=== PATIENT | female | born 1960 | race Caucasian/White ===

== ENCOUNTER 2016-05-09 14:18 | Emergency (ER) | payer MEDICARE ==
[~2016-05-09 14:18] MED LIST: CELEBREX 200MG200 MG PO; COREG 3.125M3.125 MG PO; CYMBALTA60 MG PO; DEXALANT PO; FENOFIBRATE200 MG PO; LYRICA150 MG PO; NORCO 7.5-3251 EACH PO; PRAVACHOL80 MG PO; REXULTI PO; TRAZODONE HCL150 MG PO; WELLBUTRIN SR150 MG PO
[2016-05-09 17:50] LABS: RED BLOOD COUNT 5.09 M/UL (4.00-5.10); WHITE BLOOD COUNT 3.9 K/UL (4.5-11.0)
[2016-05-09 18:09] LABS: BUN/CREATININE RATIO 10 (0-10)
== END 2016-05-09 20:30 | disposition short-term general hospital (02) ==
LOC: ER1 14:18
PROVIDERS: Emergency Medicine
DX: R51 Headache (principal); M54.5 Low back pain; R50.9 Fever, unspecified; R07.9 Chest pain, unspecified; I10 Essential (primary) hypertension; F17.200 Nicotine dependence, unspecified, uncomplicated; Z90.49 Acquired absence of other specified parts of digestive tract
CPT/HCPCS: 36415; 71010; 80053; 81001; 82550; 82553; 83605; 83874; 84484; 85025; 87040; 93005; 96361; 96365; 96375; 99285; J0696; J2270; J2405; J7050

== ENCOUNTER 2020-02-29 09:38 | Observation (INO) | payer OTHER ==
[~2020-02-29] VITALS: Ht 170.2 cm; Wt 93.0 kg
[~2020-02-29 09:38] MED LIST changes: +ANORO ELLIPTA1 EACH INH; +ASPIRIN 325MG325 MG NG; +DEXILANT60 MG PO; +GLUCOPHAGE 500500 MG PO; +GLUCOPHAGE XR500 MG PO; +LIPITOR TAB 2020 MG PO; +PROAIR HFA8.5 GM INH; +SERTRALINE HCL50 MG PO; +TOPAMAX50 MG PO
[2020-02-29 10:23] LABS: HEMOGLOBIN 15.5 gm/dl (12.3-15.3); RED BLOOD COUNT 4.88 M/UL (4.00-5.10); WHITE BLOOD COUNT 8.4 K/UL (4.5-11.0)
[2020-02-29 11:12] LABS: BUN/CREATININE RATIO 16 (0-10)
[2020-02-29] MEDS ORDERED: LIORESAL TAB 1010 MG PO (11:56)
[2020-02-29] MEDS ORDERED: HYDROCODON-ACE1 EAC4 PO (11:57)
[2020-02-29] MEDS ORDERED: MELOXICAM7.5 MG PO (11:58)
[2020-02-29] MEDS ORDERED: WELLBUTRIN SR150 M1 PO (11:59)
[2020-02-29] MEDS ORDERED: REPATHA INJ (11:59)
[2020-02-29] MEDS ORDERED: COREG6.25 MG PO (12:00)
[2020-02-29] MEDS ORDERED: ANORO ELLIPTA1 EACH INH (12:00)
[2020-02-29] MEDS ORDERED: COZAAR 25MG TAB25 MG PO (12:00)
[2020-02-29] MEDS ORDERED: METHOCARBAMOL500 MG PO (12:01)
[2020-02-29] MEDS ORDERED: NITROGLYCERIN0.4 MG SL (12:01)
[2020-02-29] MEDS ORDERED: OMEGA 3 1,0001 EACH PO (12:02)
[2020-02-29] MEDS ORDERED: ASPIRIN EC81 MG PO (12:02)
[2020-02-29] MEDS ORDERED: VITAMIN B-121000 MC3 PO (12:03)
[2020-02-29] MEDS ORDERED: VITAMIN D325 MC6 PO (12:03)
[2020-03-01 07:05] LABS: HEMOGLOBIN 14.3 gm/dl (12.3-15.3); RED BLOOD COUNT 4.63 M/UL (4.00-5.10); WHITE BLOOD COUNT 7.2 K/UL (4.5-11.0)
[2020-03-01 07:19] LABS: BUN/CREATININE RATIO 16 (0-10)
[2020-03-01] MEDS ORDERED: IMDUR ER TAB 3030 MG PO (14:17)
== END 2020-03-01 16:22 | disposition home or self-care (01) ==
LOC: ER1 09:38 → CDU 11:30 → M/S 13:58
PROVIDERS: Emergency Medicine; Physician Assistant; ADMIT Internal Medicine
DX: I25.119 Atherosclerotic heart disease of native coronary artery with unspecified angina pectoris (principal); I10 Essential (primary) hypertension; J43.9 Emphysema, unspecified; E78.5 Hyperlipidemia, unspecified; K21.9 Gastro-esophageal reflux disease without esophagitis; R73.03 Prediabetes; D75.1 Secondary polycythemia; R91.8 Other nonspecific abnormal finding of lung field; K22.70 Barrett's esophagus without dysplasia; Z20.822 Contact with and (suspected) exposure to COVID-19; Z80.9 Family history of malignant neoplasm, unspecified; Z82.49 Family history of ischemic heart disease and other diseases of the circulatory system; Z83.6 Family history of other diseases of the respiratory system; Z83.3 Family history of diabetes mellitus; Z98.890 Other specified postprocedural states; Z90.49 Acquired absence of other specified parts of digestive tract; Z90.710 Acquired absence of both cervix and uterus; Z79.82 Long term (current) use of aspirin; Z79.899 Other long term (current) drug therapy; Z98.51 Tubal ligation status; F17.210 Nicotine dependence, cigarettes, uncomplicated
CPT/HCPCS: 36415; 71045; 80048; 80053; 82550; 82553; 83036; 83874; 84484; 85025; 93005; 94640; 94664; 94760; 99152; 99153; 99285; C1760; C1769; G0378; J1644; J2250; J3010; Q9967; U0002

== ENCOUNTER 2021-01-14 13:38 | Emergency (ER) | payer OTHER ==
[~2021-01-14 13:38] MED LIST changes: +ASPIRIN EC81 MG PO; +COREG6.25 MG PO; +COZAAR 25MG TAB25 MG PO; +HYDROCODON-ACE1 EAC4 PO; +IMDUR ER TAB 3030 MG PO; +LIORESAL TAB 1010 MG PO; +MELOXICAM7.5 MG PO; +METHOCARBAMOL500 MG PO; +NITROGLYCERIN0.4 MG SL; +OMEGA 3 1,0001 EACH PO; +REPATHA INJ; +VITAMIN B-121000 MC3 PO; +VITAMIN D325 MC6 PO; +WELLBUTRIN SR150 M1 PO
[2021-01-14 14:51] LABS: HEMOGLOBIN 16.8 gm/dl (12.3-15.3); RED BLOOD COUNT 5.17 M/UL (4.00-5.10); WHITE BLOOD COUNT 12.1 K/UL (4.5-11.0)
[2021-01-14 15:20] LABS: BUN/CREATININE RATIO 19 (0-10)
[2021-01-14] MEDS ORDERED: OMEPRAZOLE20 M1 PO (17:52)
[2021-01-14] MEDS ORDERED: PROMETHAZINE HC25 M1 PO (17:59)
== END 2021-01-14 18:07 | disposition home or self-care (01) ==
LOC: ER1 13:38
PROVIDERS: Nurse Practitioner
DX: K29.70 Gastritis, unspecified, without bleeding (principal); I10 Essential (primary) hypertension; K21.9 Gastro-esophageal reflux disease without esophagitis
CPT/HCPCS: 80053; 81001; 83690; 85025; 96374; 96375; 99284; J1170; J2270; J2405; J7030; Q9967